=== PATIENT | female | born 1995 | race Caucasian/White ===

== ENCOUNTER 2017-03-31 23:49 | Inpatient (IN) | payer OTHER ==
[~2017-03-31] VITALS: Ht 154.9 cm; Wt 97.5 kg
[~2017-03-31 23:49] MED LIST: CIPRO500 MG PO
[2017-04-01 00:31] LABS: HEMATOCRIT 46.6 % (36.0-46.0); MCH 31.4 PG (29.0-34.0); MCHC 34.1 G/DL (30.0-36.0); MCV 91.9 FL (83-99); MEAN PLAT.VOLUME 9.5 uM^3 (9.5-12.4); PLATELET COUNT 308 K/uL (156-360); RBC DIS.WIDTH-CV 12.5 % (11.8-14.6); RBC DIS.WIDTH-SD 42.4 % (39-53); RED BLOOD COUNT 5.07 M/uL (3.80-5.20); WHITE BLOOD COUNT 22.4 K/uL (4.1-10.2)
[2017-04-01 00:44] LABS: CHLORIDE 105 mEq/L (99-109); POTASSIUM 4.6 mEq/L (3.7-5.4); SODIUM 140 mEq/L (136-147)
[2017-04-01 00:47] LABS: GLUCOSE 120 mg/dL (70-99)
[2017-04-01 00:48] LABS: ANION GAP 19 MEQ/L (2-14)
[2017-04-01 00:49] LABS: TOTAL BILIRUBIN 0.4 mg/dL (0.0-1.0)
[2017-04-01 00:50] LABS: ALKALINE PHOSPHATASE 155 IU/L (3-129); GFR ESTIMATE (CALCULATED) > 59 mL/min/
[2017-04-01 00:51] LABS: UREA NITROGEN (BUN) 13 mg/dL (9-23)
[2017-04-01 00:59] LABS: QUANTITATIVE HCG < 4.0 MIU/ML
[2017-04-01 01:22] LABS: C DIFF TOXIN NEGATIVE (NEGATIVE)
[2017-04-01 01:24] LABS: PROBE CHECK PASS; SPECIMEN PROCESSING CONTROL PASS
[2017-04-01 01:27] LABS: ADD MIUA? YES; BILIRUBIN NEGATIVE; BLOOD NEGATIVE; COLOR YELLOW ((YELLOW)); GLUCOSE (STRIP) NEGATIVE; KETONES 5; LEUKOCYTES TRACE; NITRITE NEGATIVE; PROTEIN (STRIP) 30; UROBILINOGEN 0.2 MG/DL (0.2-1.0)
[2017-04-01 01:49] LABS: BACTERIA NONE SEEN /HPF; EPITHELIAL CELLS 2+ /HPF; HYALINE CASTS 0-5 /LPF; MUCUS 1+ /LPF; RED BLOOD CELLS 0-5 /HPF (0-5); UCUL ADDED? NO; WHITE BLOOD CELLS 0-5 /HPF (0-5)
[2017-04-01 05:11] VITALS: BP 130/74
[2017-04-01 07:55] VITALS: BP 127/65
[2017-04-01 10:31] LABS: ADD MEDTOX COMMENT Y; AMPHETAMINE NEGATIVE (500 ng/mL); BARBITURATES NEGATIVE (200 ng/mL); BENZODIAZEPINES NEGATIVE (150 ng/mL); COCAINE NEGATIVE (150 ng/mL); INTERNAL CONTROLS VALID? YES; METHADONE NEGATIVE (200 ng/mL); METHAMPHETAMINE NEGATIVE (500 ng/mL); OPIATES (MORPHINE) NEGATIVE (100 ng/mL); OXYCODONE NEGATIVE (100 ng/mL); PHENCYCLIDINE NEGATIVE (25 ng/mL); PROPOXYPHENE NEGATIVE (300 ng/mL); THC CANNABINOIDS PRESUMPTIVE POSITIVE (50 ng/mL); TRICYCLIC ANTIDEPRESSANTS NEGATIVE (300 ng/mL)
[2017-04-01 12:50] VITALS: BP 107/57
[2017-04-01 15:05] VITALS: BP 129/71
[2017-04-01 19:15] VITALS: BP 130/65
[2017-04-01 23:56] VITALS: BP 111/62
[2017-04-02 06:31] LABS: ANION GAP 8 MEQ/L (2-14); CHLORIDE 110 MEQ/L (99-109); SAMPLE HEMOLYSIS CHECK 1; SAMPLE ICTERIC CHECK 0; SAMPLE LIPEMIA CHECK 0; SODIUM 138 MEQ/L (136-147)
[2017-04-02 06:32] LABS: HEMATOCRIT 39.9 % (36.0-46.0); MCH 32.2 PG (29.0-34.0); MCHC 33.6 G/DL (30.0-36.0); RBC DIS.WIDTH-SD 45.8 % (39-53); RED BLOOD COUNT 4.16 M/uL (3.80-5.20); WHITE BLOOD COUNT 8.8 K/uL (4.1-10.2)
[2017-04-02 06:37] LABS: GFR ESTIMATE (CALCULATED) > 59 mL/min/; UREA NITROGEN (BUN) 4 mg/dL (9-23)
[2017-04-02 06:38] LABS: GLUCOSE 80 mg/dL (70-99); MCV 95.9 FL (83-99)
[2017-04-02 06:50] LABS: MEAN PLAT.VOLUME 10.1 uM^3 (9.5-12.4); PLAT.SUFFICIENCY ADEQUATE
[2017-04-02 07:13] LABS: PLATELET COUNT 212 K/uL (156-360)
[2017-04-02 07:45] VITALS: BP 124/85
[2017-04-02] MEDS ORDERED: ZOFRAN4 MG PO (10:55)
[2017-04-02] MEDS ORDERED: PEPCID20 MG PO (10:55)
== END 2017-04-02 11:20 | disposition home or self-care (01) | DRG 392 ==
LOC: EME 23:49 → EDOF 04-01 04:32 → 2EAST 04-01 05:05
PROVIDERS: Emergency Medicine; Hospitalist
DX: A08.4 Viral intestinal infection, unspecified (principal); E87.2 Acidosis; E86.0 Dehydration; F17.200 Nicotine dependence, unspecified, uncomplicated; F12.10 Cannabis abuse, uncomplicated; E66.9 Obesity, unspecified; Z68.41 Body mass index [BMI] 40.0-44.9, adult
CPT/HCPCS: 74177; 80048; 80053; 81003; 84702; 84999; 85027; 87493; 99281; 99285; J1200; J1650; J1956; J2405; J2765; J7030; S0028

== ENCOUNTER 2017-04-23 02:07 | Emergency (ER) | payer OTHER ==
[~2017-04-23] VITALS: Ht 165.1 cm; Wt 98.0 kg
[~2017-04-23 02:07] MED LIST changes: +PEPCID20 MG PO; +ZOFRAN4 MG PO
[2017-04-23 03:01] LABS: HEMATOCRIT 46.5 % (36.0-46.0); MCH 31.1 PG (29.0-34.0); MCHC 33.3 G/DL (30.0-36.0); MCV 93.4 FL (83-99); MEAN PLAT.VOLUME 9.8 uM^3 (9.5-12.4); PLATELET COUNT 273 K/uL (156-360); RBC DIS.WIDTH-CV 12.6 % (11.8-14.6); RBC DIS.WIDTH-SD 43.3 % (39-53); RED BLOOD COUNT 4.98 M/uL (3.80-5.20); WHITE BLOOD COUNT 13.2 K/uL (4.1-10.2)
[2017-04-23 03:09] LABS: CHLORIDE 106 mEq/L (99-109); POTASSIUM 4.1 mEq/L (3.7-5.4); SODIUM 139 mEq/L (136-147)
[2017-04-23 03:11] LABS: GLUCOSE 96 mg/dL (70-99)
[2017-04-23 03:12] LABS: ANION GAP 13 MEQ/L (2-14)
[2017-04-23 03:15] LABS: GFR ESTIMATE (CALCULATED) > 59 mL/min/; UREA NITROGEN (BUN) 12 mg/dL (9-23)
[2017-04-23 03:25] LABS: TROP-I INTERPRETATION NEGATIVE; TROPONIN-I < 0.01 ng/mL (0.0-0.30)
[2017-04-23] MEDS ORDERED: FLEXERIL10 MG PO (03:36)
[2017-04-23 03:41] VITALS: BP 116/76
== END 2017-04-23 03:43 | disposition home or self-care (01) ==
LOC: EME 02:07
DX: R07.9 Chest pain, unspecified (principal); M94.0 Chondrocostal junction syndrome [Tietze]; F17.200 Nicotine dependence, unspecified, uncomplicated
CPT/HCPCS: 71020; 80048; 84484; 85027; 93005; 99281; 99284

== ENCOUNTER 2017-09-12 11:35 | Emergency (ER) | payer OTHER ==
[~2017-09-12] VITALS: Ht 157.5 cm; Wt 101.6 kg
[~2017-09-12 11:35] MED LIST changes: +FLEXERIL10 MG PO
[2017-09-12 12:37] LABS: HEMATOCRIT 44.3 % (36.0-46.0); HEMOGLOBIN 14.9 G/DL (11.9-15.5); MCH 31.3 PG (29.0-34.0); MCHC 33.6 G/DL (30.0-36.0); MCV 93.1 FL (83-99); PLATELET COUNT 290 K/uL (156-360); RBC DIS.WIDTH-CV 12.8 % (11.8-14.6); RBC DIS.WIDTH-SD 44.2 % (39-53); RED BLOOD COUNT 4.76 M/uL (3.80-5.20); WHITE BLOOD COUNT 13.9 K/uL (4.1-10.2)
[2017-09-12 12:49] LABS: ALBUMIN 4.4 g/dL (3.2-4.8)
[2017-09-12 12:50] LABS: CHLORIDE 107 mEq/L (99-109); POTASSIUM 4.7 mEq/L (3.7-5.4); SODIUM 139 mEq/L (136-147)
[2017-09-12 12:52] LABS: GLUCOSE 76 mg/dL (70-99); TOTAL PROTEIN 7.6 g/dL (6.4-8.3)
[2017-09-12 12:54] LABS: TOTAL BILIRUBIN 0.4 mg/dL (0.0-1.0)
[2017-09-12 12:55] LABS: ALKALINE PHOSPHATASE 147 IU/L (3-129)
[2017-09-12 12:56] LABS: CREATININE 0.7 mg/dL (0.6-1.3); GFR ESTIMATE (CALCULATED) > 59 mL/min/
[2017-09-12 12:57] LABS: AST (GOT) 27 IU/L (2-34); UREA NITROGEN (BUN) 6 mg/dL (9-23)
[2017-09-12 12:58] LABS: ALT (GPT) 25 IU/L (3-49)
[2017-09-12 13:04] LABS: QUANTITATIVE HCG < 4.0 MIU/ML
[2017-09-12 13:47] LABS: APPEARANCE SL.HAZY ((CLEAR)); BILIRUBIN NEGATIVE; BLOOD NEGATIVE; COLOR YELLOW ((YELLOW)); GLUCOSE (STRIP) NEGATIVE; KETONES 5; LEUKOCYTES NEGATIVE; NITRITE NEGATIVE; PROTEIN (STRIP) NEGATIVE; SPECIFIC GRAVITY 1.017 (1.000-1.030); UROBILINOGEN 0.2 MG/DL (0.2-1.0)
[2017-09-12 13:51] LABS: BACTERIA RARE /HPF; EPITHELIAL CELLS RARE /HPF; MUCUS TRACE /LPF; RED BLOOD CELLS 0-5 /HPF (0-5); UCUL ADDED? NO; WHITE BLOOD CELLS 0-5 /HPF (0-5)
[2017-09-12] MEDS ORDERED: BENTYL20 MG PO (14:55)
[2017-09-12] MEDS ORDERED: ZOFRAN ODT8 MG PO (14:55)
[2017-09-12 15:17] VITALS: BP 126/84
== END 2017-09-12 15:19 | disposition home or self-care (01) ==
LOC: EME 11:35
DX: R10.31 Right lower quadrant pain (principal); R11.2 Nausea with vomiting, unspecified; Z97.5 Presence of (intrauterine) contraceptive device; F17.200 Nicotine dependence, unspecified, uncomplicated
CPT/HCPCS: 74177; 80053; 81003; 84702; 85027; 99281; 99284; J2270; J7040